=== PATIENT | male | born 1980 | race Two or more races ===

== ENCOUNTER 2021-04-30 11:59 | Emergency (ER) | payer SELFPAY ==
[~2021-04-30] VITALS: Ht 177.8 cm; Wt 74.8 kg
[2021-04-30 12:01] VITALS: BP 92/57
== END 2021-04-30 15:22 | disposition left against medical advice (07) ==
LOC: EDBD 11:59 → ER 11:59
DX: J18.9 Pneumonia, unspecified organism (principal); Z20.822 Contact with and (suspected) exposure to COVID-19
CPT/HCPCS: 36415; 87426

== ENCOUNTER 2021-05-01 20:51 | Emergency (ER) | payer SELFPAY ==
[~2021-05-01] VITALS: Ht 177.8 cm; Wt 74.8 kg
[2021-05-01 20:56] VITALS: BP 97/51
[2021-05-01] MEDS ORDERED: ACETAMINOPHEN 325 MG TAB PO ONE (21:00)
[2021-05-01] MEDS ORDERED: IBUPROFEN 600 MG TAB PO ONE (21:00)
== END 2021-05-01 23:00 | disposition left against medical advice (07) ==
LOC: ER 20:53
DX: R50.9 Fever, unspecified (principal); M79.10 Myalgia, unspecified site; Z53.21 Procedure and treatment not carried out due to patient leaving prior to being seen by health care provider